=== PATIENT | female | born 1995 | race African-American/Black ===

== ENCOUNTER → 2017-03-28 | Outpatient (CLI) | payer OTHER ==
--- NOTE | 2017-03-28 09:48 | RAD ---
Examination: Ultrasound pelvis History: History of amenorrhea Comparison: None available Findings: The uterus measures 7.6 x 5.2 x 3.3 cm. The endometrium measures 5.3 mm in thickness. The right ovary measures 3.8 x1.5 x 2.4 cm. Blood flow identified in the right ovary. The left ovary measures 3.0 x 2.4 x 2.0 cm. Blood flow identified in the left ovary. Impression: Unremarkable exam
== END | disposition home or self-care (01) ==
LOC: US 08:50
PROVIDERS: ATTEND Obstetrics & Gynecology
DX: N91.1 Secondary amenorrhea (principal)
CPT/HCPCS: 76856

== ENCOUNTER → 2017-10-11 | Outpatient (CLI) | payer OTHER ==
--- NOTE | 2017-10-11 11:30 | RAD ---
PELVIS COMPLETE Clinical Indication: follow up left ovarian cyst, fibroid Comparison: Pelvic ultrasound dated 03/28/2017, pelvic ultrasound from [facility] dated 09/08/2017. Technique: Real-time grayscale and color Doppler transabdominal pelvic ultrasound was obtained. Findings: The uterus measures 9.5 x 4.4 x 4.4 cm. It contains a fibroid near the anterior fundus measuring 2.6 x 2.2 x 3.0 cm. The endometrial thickness measures 1.0 cm. A small amount of fluid is seen within the cervical canal. Normal vascular flow seen within the bilateral ovaries. The right ovary measures 4.6 x 2.2 x 3.0 cm. The left ovary measures 2.9 x 3.2 x 3.5 cm. It contains a 2.1 x 2.2 x 2.1 cm slightly complex cyst. No adnexal mass or free fluid. IMPRESSION: 1. 2.1 x 2.2 x 2.1 cm slightly complex left ovarian cyst has decreased in size compared to 09/08/2017 exam at which point it measured 3.7 x 3.3 x 2.4 cm. Continued follow-up ultrasound could be obtained in 6 weeks, although cyst is most likely physiologic. 2. 2.6 x 2.2 x 3.0 cm anterior fundal fibroid. 3. Small amount of fluid in the cervical canal is likely physiologic given patient's age.
== END | disposition home or self-care (01) ==
LOC: US 07:46
PROVIDERS: ATTEND Obstetrics & Gynecology
DX: N83.202 Unspecified ovarian cyst, left side (principal)
CPT/HCPCS: 76856